=== PATIENT | female | born 2005 | race Caucasian/White ===

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

== ENCOUNTER 2024-06-26 00:04 | Day surgery (SDC) | payer BC ==
[2024-06-26] MEDS ORDERED: hydrALAZINE 20 MG/ML VIAL SLOW IVP PRN (00:45)
[2024-06-26 00:50] VITALS: BMI 26.3
[2024-06-26 00:51] LABS: Bilirubin Neg (Negative); Blood, Urine Negative (Negative); Glucose, Urine (Dipstick) 250 mg/dL (Negative); Ketone, Urine Negative (Negative); Leukocyte 25 (Negative); Nitrite Negative (Negative); Protein, Urine (Dipstick) Negative (Neg-Trace); Urobilinogen Normal mg/dL (Less than 2)
[2024-06-26 00:57] LABS: Clarity Clear (Clear)
[2024-06-26 01:00] LABS: Bacteria/HPF 2+ HPF (None Seen); CAUTI Indications for Culture Pregnancy; RBC/HPF 0-3 HPF (0-3)
[2024-06-26 01:02] LABS: Urine Culture Reflex Yes Yes
== END 2024-06-26 04:05 | disposition home or self-care (01) ==
LOC: CSHLD/OP 00:04
PROVIDERS: ATTEND Obstetrics & Gynecology
DX: O47.03 False labor before 37 completed weeks of gestation, third trimester (principal); O99.891 Other specified diseases and conditions complicating pregnancy; R10.9 Unspecified abdominal pain; O00.01 Abdominal pregnancy with intrauterine pregnancy; O21.1 Hyperemesis gravidarum with metabolic disturbance; Z79.899 Other long term (current) drug therapy; Z86.16 Personal history of COVID-19; Z90.89 Acquired absence of other organs; Z3A.34 34 weeks gestation of pregnancy
CPT/HCPCS: 81001; 87086